=== PATIENT | female | born 1995 | race African-American/Black ===

== ENCOUNTER 2019-06-16 01:39 | Emergency (ER) | payer SELFPAY ==
[2019-06-16 01:48] VITALS: BP 147/79; PULSE 108; RESP 20; TEMP 36.6; O2SAT 98
--- NOTE | 2019-06-16 01:57 | ED.GENADUL_ITS ---
Discharge Plan Disposition Patient Disposition: HOME Condition: Good Discharge Details Chief Complaint: Nk/Back Pain Clinical Impression: Inflammation of left sacroiliac joint ED Provider: Dillan Wolf Meds and New Rx's Prescriptions: New naproxen 500 mg tablet,delayed release (DR/EC) 500 mg PO BID Qty: 20 RF: 0 Discontinued naproxen sodium [Aleve] 220 mg Capsule 220 mg PO BID PRN PRNRF: 0 Discharge Instructions Instructions: Lower Back Exercises (ED) Additional Instructions: Please use naproxen as prescribed. May take acetaminophen in addition for pain. Gentle stretching, massage and heat will help. Try to limit heavy lifting and repetitive bending. You will need follow-up with primary care if there is no response to this treatment. Return to emergency department if you develop bladder or bowel dysfunction, weakness, numbness in the lower extremities. Medical Decision Making Patient with tenderness and swelling over the posterior superior iliac spine on the left. Has decent range of motion otherwise. Has no spinal tenderness itself. Has no neurologic symptoms. She does do a lot of standing, bending, lifting which is likely what is aggravating her problem which began about a month ago. She is only in the area transiently and does not have primary care. Will prescribe naproxen, stretching, massage and heat as well as limited bending and lifting. Unfortunately no good follow-up as she travels for work. Return to ED for worsening pain or neurologic changes. HPI General Mode of arrival: ambulatory . Date/Time Provider Initiated Documentation: 06/16/19 01:54 . Limitations to Documentation: no limitations . Information obtained by: patient and RN notes reviewed . HPI Narrative: Patient presents to the emergency department for left lower back pain that has been present for 1 month and worsening. Tonight her girlfriend noticed swelling in the area and brought her in for evaluation. There is no specific injury. There are no neurologic changes. There are no skin changes. She has done stretching and has been using nonsteroidals but does not seem to be getting better. She does a lot of lifting and bending for her job. There is no abdominal pain or pelvic pain. There are no urinary symptoms. Related Data Home Medications Medication Instructions Recorded Confirmed naproxen 500 mg PO BID #20 tab 06/16/19 Previous Rx's Medication Instructions Recorded naproxen 500 mg PO BID #20 tab 06/16/19 Allergies Allergy/AdvReac Type Severity Reaction Status Date / Time No Known Allergies Allergy Unverified 06/16/19 01:59 General Stated Complaint: Nk/Back Pain ALEM: 4 Review of Systems Constitutional Constitutional: Denies weakness Musculoskeletal Musculoskeletal: Reports back pain, Denies numbness, Denies radiating pain into limb and Denies tingling Integumentary/Breasts Skin/Breast: Denies rash Neurologic Neurologic: Denies numbness, Denies radicular pain, Denies tingling and Denies weakness [facility] Medical History No active medical problems (Acute) Surgical History No significant past surgical history (Acute) Social History Smoking/Tobacco Use Status: Current every day Alcohol Intake: current Alcohol Intake frequency: a few times a month Substance use type: marijuana Do you feel safe at home: Yes Do you feel safe in your relationship?: Yes Exam Const General: cooperative, comfortable and no acute distress Nutritional Appearance: thin Orientation: alert and oriented x3 [facility] Head: normocephalic and atraumatic Neck Neck: normal visual inspection and supple Back/Spine/Pelvis Thoracic/Lumbar Spine: thoraco-lumbar ROM normal, No thoraco-lumbar ROM limited, No thoracic spinal tenderness and No lumbar spinal tenderness Sacroiliac joints: on the left tender to palpation (Tender to palpation with some swelling over the left posterior superior iliac spine.) Sacrum: no tenderness Coccyx: no tenderness Skin Rashes: no rashes Neuro General: alert, oriented x3, gait normal and moves all extremities Motor: strength 5/5 throughout Sensory Exam: no sensory deficits noted Course Vital Signs Vital signs: Vital Signs Temperature 97.9 F 06/16/19 01:48 Pulse 108 H 06/16/19 01:48 Respiratory Rate 06/16/19 01:48 Blood Pressure 147/79 H 06/16/19 01:48 Pulse Oximetry 98 06/16/19 01:48 Temperature 97.9 F 06/16/19 01:48 Temperature Source Skin 06/16/19 01:48 Pulse 108 H 06/16/19 01:48 Respiratory Rate 06/16/19 01:48 Blood Pressure 147/79 H 06/16/19 01:48 Blood Pressure Position Sitting 06/16/19 01:48 Pulse Oximetry 98 06/16/19 01:48 Oxygen Delivery Method Room Air 06/16/19 01:48 Oxygen Flow Rate 0 06/16/19 01:48 Pain Level 8 06/16/19 01:48
[2019-06-16 02:38] VITALS: BP 147/79; PULSE 108; RESP 20; TEMP 36.6; O2SAT 98
== END 2019-06-16 02:50 | disposition home or self-care (01) ==
LOC: ER 02:46
PROVIDERS: Emergency Provider Emergency Medicine
DX: M46.1 Sacroiliitis, not elsewhere classified (principal)
CPT/HCPCS: 99283